=== PATIENT | male | born 1985 | race Caucasian/White ===

== ENCOUNTER → 2023-12-07 | Outpatient (CLI) | payer OTHER ==
--- NOTE | 2023-12-07 16:04 | CT ---
EXAMINATION TYPE: CT chest wo con CT DLP: 467.3 mGycm, Automated exposure control for dose reduction was used. DATE OF EXAM: 12/07/2023 3:35 PM COMPARISON: None CLINICAL INDICATION:Male, 38 years old with history of R91.8 OTHER NONSPECIFIC ABNORMAL FINDING OF ANTONIO NG F; PHH, Abnormal findings of left lung x 6 months ago TECHNIQUE: Multiple axial images were obtained through the chest. Sagittal and coronal reformats were created for review. Contrast used: mL of (None if empty) Oral contrast used: (None if empty) FINDINGS: LUNGS/ PLEURA: No focal consolidation, pneumothorax or pleural effusion. The lungs are clear. AIRWAY: Patent and unremarkable. HEART: Size within normal limits. MEDIASTINUM: No gross evidence of adenopathy. VASCULATURE: No aortic aneurysm. MUSCULOSKELETAL: No acute osseous abnormalities SOFT TISSUES/LYMPH NODES: Unremarkable. LOWER NECK: Prominent right thyroid gland. UPPER ABDOMEN: Gallstone in the gallbladder neck. IMPRESSION: 1. No evidence for acute process. 2. No pulmonary nodules identified.
== END | disposition home or self-care (01) ==
LOC: RADCTMAIN 14:58
PROVIDERS: ATTEND Family Medicine
DX: R91.8 Other nonspecific abnormal finding of lung field (principal)
CPT/HCPCS: 71250